=== PATIENT | male | born 1990 | race Caucasian/White ===

== ENCOUNTER 2022-08-04 13:51 | Inpatient (IN) | payer OTHER ==
[2022-08-04 19:06] VITALS: BMI 29.7
[2022-08-04] MEDS ORDERED: MAGNESIUM CITRATE 300 ML BOTTLE PO PRN (23:14)
[2022-08-04] MEDS ORDERED: IBUPROFEN 400 MG TABLET (FP) PO PRN (23:14)
[2022-08-04] MEDS ORDERED: LOPERAMIDE HCL 2 MG CAPSULE PO PRN (23:14)
[2022-08-04] MEDS ORDERED: guaiFENesin 200 MG/10 ML 10 ML UNIT-DOSE CUPS PO PRN (23:14)
[2022-08-04] MEDS ORDERED: MAGNESIUM HYDROX 2400MG/30ML ORAL SUSPENSION 30 ML CUP PO PRN (23:14)
[2022-08-04] MEDS ORDERED: P-EPHED 60MG/TRIPROLIDI 2.5MG TABLET PO PRN (23:14)
[2022-08-04] MEDS ORDERED: MAG HYDROX/AL HYDROX/SIMETH 30 ML UNIT-DOSE CUP PO PRN (23:14)
[2022-08-04] MEDS ORDERED: ACETAMINOPHEN 325 MG TABLET (FP) PO PRN (23:31)
[2022-08-05] MEDS: IBUPROFEN 400 MG TABLET (FP) PO PRN ×2 (01:08→21:20)
[2022-08-05] MEDS: hydrOXYzine PAMOATE 25 MG CAPSULE (FP) PO PRN ×3 (01:08→21:16)
[2022-08-05] MEDS ORDERED: TUBERCULIN PPD 5 TU/0.1ML VIAL ID ONE (08:59)
[2022-08-05] MEDS: PRENATAL VITAMINS W/ FOLIC ACID TABLET (FP) PO SCH (10:14)
[2022-08-05] MEDS: ACETAMINOPHEN 325 MG TABLET (FP) PO PRN (10:15)
[2022-08-05 10:53] LABS: EPI CELLS >36 /uL (0-25.1); HYALINE CASTS 17 /uL (0-3.1); URINE APPEARANCE TURBID; URINE BILIRUBIN 2+ (NEGATIVE); URINE COLOR DK YELLOW; URINE GLUCOSE (UA) NEGATIVE (NEGATIVE); URINE KETONE 1+ (NEGATIVE); URINE LEUK ESTERASE NEGATIVE (NEGATIVE); URINE NITRITE POSITIVE (NEGATIVE); URINE PROTEIN 3+ (NEGATIVE); URINE RBC 17 /uL (0-23.9); URINE WBC 15 /uL (0-25.8)
[2022-08-05 11:37] LABS: URINE BACTERIA MODERATE /uL (0-1359)
[2022-08-05 15:07] LABS: HEMATOCRIT 35.3 % (35.4-49); HEMOGLOBIN 11.8 GM/dL (11.7-16.9); MCH 30.9 pg (25.7-33.7); MCHC 33.3 g/dl (32.0-35.9); MEAN CELL VOLUME 92.9 fl (80-96); MEAN PLT VOLUME 10.2 fl (7.5-11.1); PLATELET COUNT 131 10^3/uL (134-434); RDW 14.5 % (11.9-15.9); WHITE BLOOD COUNT 8.7 K/mm3 (4.0-10.0)
[2022-08-05 15:20] LABS: ALBUMIN 2.3 g/dl (3.4-5.0); BLOOD UREA NITROGEN 13.6 mg/dL (7-18); CALCIUM 9.2 mg/dL (8.5-10.1)
[2022-08-05 15:22] LABS: CREATININE 0.7 mg/dL (0.55-1.3)
[2022-08-05 15:24] LABS: BILIRUBIN,TOTAL 1.1 mg/dL (0.2-1); TOT PROT 6.8 g/dl (6.4-8.2)
[2022-08-05 15:33] LABS: SYPHILIS W/ RPR CONF NON-REACTIVE (NONREACTIVE)
[2022-08-05] MEDS: QUEtiapine FUMARATE 100 MG TABLET (FP) PO SCH (21:16)
[2022-08-05] MEDS: THIAMINE HCL 100 MG TABLET (FP) PO SCH (21:22)
[2022-08-06] MEDS: hydrOXYzine PAMOATE 25 MG CAPSULE (FP) PO PRN (10:54)
[2022-08-06] MEDS: IBUPROFEN 400 MG TABLET (FP) PO PRN (10:54)
[2022-08-06] MEDS: PRENATAL VITAMINS W/ FOLIC ACID TABLET (FP) PO SCH (10:54)
[2022-08-06] MEDS: QUEtiapine FUMARATE 100 MG TABLET (FP) PO SCH (21:20)
[2022-08-06] MEDS: MELATONIN 5 MG TABLETS PO PRN (21:21)
[2022-08-06] MEDS: THIAMINE HCL 100 MG TABLET (FP) PO SCH (21:21)
[2022-08-07] MEDS: PRENATAL VITAMINS W/ FOLIC ACID TABLET (FP) PO SCH (09:55)
[2022-08-07] MEDS: hydrOXYzine PAMOATE 25 MG CAPSULE (FP) PO PRN ×2 (09:56→21:26)
[2022-08-07] MEDS: IBUPROFEN 600 MG TABLET (FP) PO PRN ×2 (09:56→21:25)
[2022-08-07] MEDS: DOXYCYCLINE HYCLATE 100 MG TABLET PO SCH (17:31)
[2022-08-07] MEDS: THIAMINE HCL 100 MG TABLET (FP) PO SCH (21:25)
[2022-08-07] MEDS: QUEtiapine FUMARATE 100 MG TABLET (FP) PO SCH (21:25)
[2022-08-07] MEDS: MELATONIN 5 MG TABLETS PO PRN (21:26)
[2022-08-07] MEDS: POTASSIUM CHLORIDE ORAL LIQUID 20 MEQ/15 ML PO SCH (22:49)
[2022-08-08] MEDS: PRENATAL VITAMINS W/ FOLIC ACID TABLET (FP) PO SCH (09:59)
[2022-08-08] MEDS: POTASSIUM CHLORIDE ORAL LIQUID 20 MEQ/15 ML PO SCH (10:02)
[2022-08-08] MEDS: DOXYCYCLINE HYCLATE 100 MG TABLET PO SCH ×2 (10:03→18:09)
[2022-08-08] MEDS: IBUPROFEN 600 MG TABLET (FP) PO PRN ×2 (10:05→21:17)
[2022-08-08] MEDS: MELATONIN 5 MG TABLETS PO PRN (21:18)
[2022-08-08] MEDS: QUEtiapine FUMARATE 100 MG TABLET (FP) PO SCH (21:18)
[2022-08-08] MEDS: THIAMINE HCL 100 MG TABLET (FP) PO SCH (21:18)
[2022-08-09] MEDS: DOXYCYCLINE HYCLATE 100 MG TABLET PO SCH ×2 (09:37→17:27)
[2022-08-09] MEDS: PRENATAL VITAMINS W/ FOLIC ACID TABLET (FP) PO SCH (09:37)
[2022-08-09] MEDS: IBUPROFEN 600 MG TABLET (FP) PO PRN (09:39)
[2022-08-09] MEDS: THIAMINE HCL 100 MG TABLET (FP) PO SCH (22:20)
[2022-08-09] MEDS: QUEtiapine FUMARATE 100 MG TABLET (FP) PO SCH (22:20)
[2022-08-09] MEDS: MELATONIN 5 MG TABLETS PO PRN (22:21)
[2022-08-09] MEDS: hydrOXYzine PAMOATE 25 MG CAPSULE (FP) PO PRN (22:21)
[2022-08-10] MEDS: PRENATAL VITAMINS W/ FOLIC ACID TABLET (FP) PO SCH (10:05)
[2022-08-10] MEDS: DOXYCYCLINE HYCLATE 100 MG TABLET PO SCH ×2 (10:06→19:08)
[2022-08-10] MEDS: IBUPROFEN 600 MG TABLET (FP) PO PRN (10:07)
[2022-08-10] MEDS: THIAMINE HCL 100 MG TABLET (FP) PO SCH (22:00)
[2022-08-10] MEDS: QUEtiapine FUMARATE 100 MG TABLET (FP) PO SCH (22:00)
[2022-08-11] MEDS: IBUPROFEN 600 MG TABLET (FP) PO PRN ×2 (09:54→17:06)
[2022-08-11] MEDS: PRENATAL VITAMINS W/ FOLIC ACID TABLET (FP) PO SCH (09:54)
[2022-08-11] MEDS: DOXYCYCLINE HYCLATE 100 MG TABLET PO SCH ×2 (09:55→17:05)
[2022-08-11] MEDS: THIAMINE HCL 100 MG TABLET (FP) PO SCH (22:18)
[2022-08-11] MEDS: QUEtiapine FUMARATE 100 MG TABLET (FP) PO SCH (22:18)
[2022-08-12] MEDS: DOXYCYCLINE HYCLATE 100 MG TABLET PO SCH ×2 (10:27→17:47)
[2022-08-12] MEDS: PRENATAL VITAMINS W/ FOLIC ACID TABLET (FP) PO SCH (10:27)
[2022-08-12] MEDS: IBUPROFEN 600 MG TABLET (FP) PO PRN (10:28)
[2022-08-12] MEDS: THIAMINE HCL 100 MG TABLET (FP) PO SCH (21:25)
[2022-08-12] MEDS: ACETAMINOPHEN 325 MG TABLET (FP) PO PRN (21:25)
[2022-08-12] MEDS: QUEtiapine FUMARATE 100 MG TABLET (FP) PO SCH (21:25)
[2022-08-13] MEDS: IBUPROFEN 600 MG TABLET (FP) PO PRN ×2 (06:17→21:17)
[2022-08-13] MEDS: PRENATAL VITAMINS W/ FOLIC ACID TABLET (FP) PO SCH (10:00)
[2022-08-13] MEDS: DOXYCYCLINE HYCLATE 100 MG TABLET PO SCH ×2 (10:00→18:09)
[2022-08-13] MEDS: MELATONIN 5 MG TABLETS PO PRN (21:16)
[2022-08-13] MEDS: THIAMINE HCL 100 MG TABLET (FP) PO SCH (21:16)
[2022-08-13] MEDS: hydrOXYzine PAMOATE 25 MG CAPSULE (FP) PO PRN (21:16)
[2022-08-13] MEDS: QUEtiapine FUMARATE 100 MG TABLET (FP) PO SCH (21:16)
[2022-08-14] MEDS: IBUPROFEN 600 MG TABLET (FP) PO PRN ×2 (07:08→21:22)
[2022-08-14] MEDS: DOXYCYCLINE HYCLATE 100 MG TABLET PO SCH (10:13)
[2022-08-14] MEDS: PRENATAL VITAMINS W/ FOLIC ACID TABLET (FP) PO SCH (10:13)
[2022-08-14] MEDS: THIAMINE HCL 100 MG TABLET (FP) PO SCH (21:22)
[2022-08-14] MEDS: QUEtiapine FUMARATE 100 MG TABLET (FP) PO SCH (21:22)
[2022-08-15] MEDS: IBUPROFEN 600 MG TABLET (FP) PO PRN ×2 (06:55→21:30)
[2022-08-15] MEDS: PRENATAL VITAMINS W/ FOLIC ACID TABLET (FP) PO SCH (10:01)
[2022-08-15] MEDS: ACETAMINOPHEN 325 MG TABLET (FP) PO PRN (10:02)
[2022-08-15] MEDS: LIDOCAINE 5% TOPICAL PATCH TP SCH (17:21)
[2022-08-15] MEDS: MELATONIN 5 MG TABLETS PO PRN (21:29)
[2022-08-15] MEDS: QUEtiapine FUMARATE 100 MG TABLET (FP) PO SCH (21:29)
[2022-08-15] MEDS: THIAMINE HCL 100 MG TABLET (FP) PO SCH (21:29)
[2022-08-15] MEDS: LIDOCAINE PATCH REMOVAL MC SCH (22:28)
[2022-08-16] MEDS: IBUPROFEN 600 MG TABLET (FP) PO PRN ×2 (06:46→21:18)
[2022-08-16] MEDS: PRENATAL VITAMINS W/ FOLIC ACID TABLET (FP) PO SCH (09:43)
[2022-08-16] MEDS: LIDOCAINE 5% TOPICAL PATCH TP SCH (09:43)
[2022-08-16] MEDS: ACETAMINOPHEN 325 MG TABLET (FP) PO PRN (09:44)
[2022-08-16] MEDS: MELATONIN 5 MG TABLETS PO PRN (21:17)
[2022-08-16] MEDS: THIAMINE HCL 100 MG TABLET (FP) PO SCH (21:17)
[2022-08-16] MEDS: QUEtiapine FUMARATE 100 MG TABLET (FP) PO SCH (21:18)
[2022-08-16] MEDS: LIDOCAINE PATCH REMOVAL MC SCH (21:18)
[2022-08-17 07:39] VITALS: BP 101/60; PULSE 77; RESP 17; TEMP 97.1
[2022-08-17] MEDS: IBUPROFEN 600 MG TABLET (FP) PO PRN (08:43)
[2022-08-17] MEDS ORDERED: LIDOCAINE PATCH REMOVAL MC SCH (09:23)
[2022-08-17] MEDS: PRENATAL VITAMINS W/ FOLIC ACID TABLET (FP) PO SCH (10:08)
[2022-08-17] MEDS: LIDOCAINE 5% TOPICAL PATCH TP SCH (10:09)
[2022-08-17] MEDS: QUEtiapine FUMARATE 100 MG TABLET (FP) PO SCH (21:29)
[2022-08-17] MEDS: THIAMINE HCL 100 MG TABLET (FP) PO SCH (21:29)
[2022-08-17] MEDS: MELATONIN 5 MG TABLETS PO PRN (21:29)
[2022-08-17] MEDS: hydrOXYzine PAMOATE 25 MG CAPSULE (FP) PO PRN (21:30)
[2022-08-18] MEDS: IBUPROFEN 600 MG TABLET (FP) PO PRN (07:11)
[2022-08-18] MEDS: PRENATAL VITAMINS W/ FOLIC ACID TABLET (FP) PO SCH (09:19)
[2022-08-18] MEDS: LIDOCAINE 5% TOPICAL PATCH TP SCH (09:20)
== END 2022-08-18 09:28 | disposition home or self-care (01) | DRG 772 ==
LOC: YASAS 13:51 → Y5N 23:03
PROVIDERS: ADMIT Allergy & Immunology; ATTEND Psychiatry & Neurology Pain Medicine
PROC: HZ42ZZZ Group Counseling for Substance Abuse Treatment, Cognitive-Behavioral (ICD-10-PCS; principal; 2022-08-01)
DX: F10.20 Alcohol dependence, uncomplicated (principal); F41.9 Anxiety disorder, unspecified; F32.A Depression, unspecified; G47.00 Insomnia, unspecified; E87.6 Hypokalemia; N39.0 Urinary tract infection, site not specified; S93.402D Sprain of unspecified ligament of left ankle, subsequent encounter; V18.0XXD Pedal cycle driver injured in noncollision transport accident in nontraffic accident, subsequent encounter; Z99.89 Dependence on other enabling machines and devices
CPT/HCPCS: 36415; 73110-TC-RT-FY; 80053; 81003; 84132; 85027; 86780; 86803; 87086; C9803-CS; U0003; U0005

== ENCOUNTER 2023-08-01 11:22 | Inpatient (IN) | payer OTHER ==
[2023-08-01 12:09] VITALS: BMI 25.4
[2023-08-01] MEDS ORDERED: BENZONATATE 200 MG CAPSULE PO PRN (12:54)
[2023-08-01] MEDS ORDERED: ONDANSETRON *ODT* 4 MG TABLET SL PRN (12:54)
[2023-08-01] MEDS ORDERED: guaiFENesin 600 MG TABLET.ER (FP) PO PRN (12:54)
[2023-08-01] MEDS ORDERED: LOPERAMIDE HCL 2 MG CAPSULE PO PRN (12:54)
[2023-08-01] MEDS ORDERED: NALOXONE HCL 0.4 MG/ML VIAL IM PRN (12:54)
[2023-08-01] MEDS ORDERED: MAGNESIUM HYDROX 2400MG/30ML ORAL SUSPENSION 30 ML CUP PO PRN (12:54)
[2023-08-01] MEDS ORDERED: IBUPROFEN 400 MG TABLET (FP) PO PRN (12:54)
[2023-08-01] MEDS ORDERED: DICYCLOMINE HCL 10 MG CAPSULE PO PRN (12:54)
[2023-08-01] MEDS ORDERED: hydrOXYzine PAMOATE 25 MG CAPSULE (FP) PO PRN (12:54)
[2023-08-01] MEDS ORDERED: BISMUTH SUBSALICYLATE 524 MG/30 ML PO PRN (12:54)
[2023-08-01] MEDS ORDERED: BENZOCAINE/MENTHOL (CHLORASEPTIC ) LOZENGE MM PRN (12:54)
[2023-08-01] MEDS ORDERED: ACETAMINOPHEN 325 MG TABLET (FP) PO PRN (12:54)
[2023-08-01] MEDS ORDERED: MAG HYDROX/AL HYDROX/SIMETH 30 ML UNIT-DOSE CUP PO PRN (12:54)
[2023-08-01] MEDS ORDERED: IBUPROFEN 600 MG TABLET (FP) PO PRN (12:54)
[2023-08-01] MEDS ORDERED: POLYETHYLENE GLYCOL (HEALTHYLAX) 3350 17 GM PACKET PO PRN (12:54)
[2023-08-01] MEDS ORDERED: NALOXONE HCL (KLOXXADO) 8 MG SPRAY NS PRN (12:54)
[2023-08-01] MEDS: ERYTHROMYCIN 0.5% OPHTHALMIC OINTMENT 3.5 GM TUBE OD SCH (15:22)
[2023-08-01] MEDS ORDERED: chlordiazePOXIDE HCL 25 MG CAPSULE PO PRN (18:05)
[2023-08-01] MEDS: METHOCARBAMOL 500 MG TABLET PO PRN (19:34)
[2023-08-01] MEDS: chlordiazePOXIDE HCL 25 MG CAPSULE PO SCH (22:19)
[2023-08-01] MEDS: THIAMINE HCL 100 MG TABLET (FP) PO SCH (22:19)
[2023-08-01] MEDS: MELATONIN 5 MG TABLETS PO SCH (22:19)
[2023-08-01] MEDS: QUEtiapine FUMARATE 100 MG TABLET (FP) PO SCH (22:19)
[2023-08-02] MEDS: chlordiazePOXIDE HCL 25 MG CAPSULE PO SCH ×2 (05:12→10:39)
[2023-08-02 10:20] LABS: HEMATOCRIT 35.3 % (35.4-49); HEMOGLOBIN 12.5 GM/dL (11.7-16.9); MCHC 35.4 g/dl (32.0-35.9); MEAN PLT VOLUME 7.6 fl (7.5-11.1); PLATELET COUNT 93 10^3/uL (134-434); RBC 3.68 M/mm3 (4.00-5.60); RDW 18.6 % (11.9-15.9); WHITE BLOOD COUNT 2.3 K/mm3 (4.0-10.0)
[2023-08-02] MEDS: PRENATAL VITAMINS W/ FOLIC ACID TABLET (FP) PO SCH (10:38)
[2023-08-02] MEDS: ERYTHROMYCIN 0.5% OPHTHALMIC OINTMENT 3.5 GM TUBE OD SCH (10:39)
[2023-08-02] MEDS: NICOTINE 21 MG/24 HOURS TOPICAL PATCH TD SCH (10:41)
[2023-08-02 10:48] LABS: CHLORIDE 103 mmol/L (98-107); SODIUM 139 mmol/L (136-145)
[2023-08-02 11:09] LABS: CALCIUM 8.8 mg/dL (8.5-10.1)
[2023-08-02 11:10] LABS: BLOOD UREA NITROGEN 12.3 mg/dL (7-18); CO2 29 mmol/L (21-32); GLUCOSE,RANDOM 94 mg/dL (74-106)
[2023-08-02 11:12] LABS: CREATININE 0.6 mg/dL (0.55-1.3); SGOT/AST 232 U/L (15-37); SGPT/ALT 88 U/L (13-61)
[2023-08-02 11:14] LABS: TOT PROT 6.7 g/dl (6.4-8.2)
[2023-08-02 11:16] LABS: ALK PHOS 131 U/L (45-117); BILIRUBIN,TOTAL 1.8 mg/dL (0.2-1)
[2023-08-02 11:21] LABS: ANION GAP 7 MMOL/L (8-16); POTASSIUM 2.9 mmol/L (3.5-5.1)
[2023-08-02] MEDS ORDERED: POTASSIUM CHLORIDE ORAL LIQUID 20 MEQ/15 ML PO ONE ×2 (11:47→13:00)
[2023-08-02] MEDS ORDERED: LORazepam 1 MG TABLET PO PRN (11:55)
[2023-08-02] MEDS: LORazepam 2 MG TABLET PO SCH ×2 (17:31→22:07)
[2023-08-02] MEDS: NICOTINE POLACRILEX 2 MG GUM BUC PRN (17:32)
[2023-08-02] MEDS: QUEtiapine FUMARATE 100 MG TABLET (FP) PO SCH (22:07)
[2023-08-02] MEDS: THIAMINE HCL 100 MG TABLET (FP) PO SCH (22:07)
[2023-08-02] MEDS: MELATONIN 5 MG TABLETS PO SCH (22:07)
[2023-08-02] MEDS: POTASSIUM CHLORIDE ORAL LIQUID 20 MEQ/15 ML PO SCH (22:08)
[2023-08-03] MEDS ORDERED: chlordiazePOXIDE HCL 25 MG CAPSULE PO SCH (05:00)
[2023-08-03] MEDS: LORazepam 2 MG TABLET PO SCH ×4 (05:17→22:17)
[2023-08-03] MEDS: PRENATAL VITAMINS W/ FOLIC ACID TABLET (FP) PO SCH (10:21)
[2023-08-03] MEDS: POTASSIUM CHLORIDE ORAL LIQUID 20 MEQ/15 ML PO SCH ×2 (10:22→22:16)
[2023-08-03] MEDS: NICOTINE POLACRILEX 2 MG GUM BUC PRN ×2 (10:22→19:43)
[2023-08-03] MEDS: ERYTHROMYCIN 0.5% OPHTHALMIC OINTMENT 3.5 GM TUBE OD SCH (10:24)
[2023-08-03] MEDS: NICOTINE 21 MG/24 HOURS TOPICAL PATCH TD SCH (10:25)
[2023-08-03 12:10] LABS: HEMATOCRIT 36.4 % (35.4-49); HEMOGLOBIN 12.2 GM/dL (11.7-16.9); MCH 33.2 pg (25.7-33.7); MCHC 33.6 g/dl (32.0-35.9); MEAN CELL VOLUME 98.9 fl (80-96); MEAN PLT VOLUME 7.8 fl (7.5-11.1); PLATELET COUNT 87 10^3/uL (134-434); RBC 3.68 M/mm3 (4.00-5.60); RDW 18.6 % (11.9-15.9); WHITE BLOOD COUNT 2.5 K/mm3 (4.0-10.0)
[2023-08-03 13:21] LABS: POTASSIUM 3.6 mmol/L (3.5-5.1)
[2023-08-03 14:03] LABS: BLOOD UREA NITROGEN 11.1 mg/dL (7-18); CALCIUM 8.9 mg/dL (8.5-10.1)
[2023-08-03 14:06] LABS: CREATININE 0.7 mg/dL (0.55-1.3)
[2023-08-03 14:07] LABS: TOT PROT 6.5 g/dl (6.4-8.2)
[2023-08-03 14:09] LABS: BILIRUBIN,TOTAL 1.2 mg/dL (0.2-1)
[2023-08-03] MEDS: METHOCARBAMOL 500 MG TABLET PO PRN (20:58)
[2023-08-03] MEDS: MELATONIN 5 MG TABLETS PO SCH (22:15)
[2023-08-03] MEDS: THIAMINE HCL 100 MG TABLET (FP) PO SCH (22:16)
[2023-08-03] MEDS: QUEtiapine FUMARATE 100 MG TABLET (FP) PO SCH (22:16)
[2023-08-04] MEDS ORDERED: chlordiazePOXIDE HCL 10 MG CAPSULE PO PRN
[2023-08-04] MEDS ORDERED: chlordiazePOXIDE HCL 10 MG CAPSULE PO SCH (05:00)
[2023-08-04] MEDS: LORazepam 1 MG TABLET PO SCH ×2 (05:18→10:45)
[2023-08-04 06:13] VITALS: BP 137/89; PULSE 82; RESP 16; TEMP 97.8
[2023-08-04] MEDS: PRENATAL VITAMINS W/ FOLIC ACID TABLET (FP) PO SCH (09:42)
[2023-08-04] MEDS: POTASSIUM CHLORIDE ORAL LIQUID 20 MEQ/15 ML PO SCH (09:42)
[2023-08-04] MEDS: NICOTINE 21 MG/24 HOURS TOPICAL PATCH TD SCH (09:45)
[2023-08-04] MEDS: ERYTHROMYCIN 0.5% OPHTHALMIC OINTMENT 3.5 GM TUBE OD SCH (09:45)
[2023-08-05] MEDS ORDERED: LORazepam 0.5 MG TABLET PO PRN
[2023-08-05] MEDS ORDERED: LORazepam 0.5 MG TABLET PO SCH (05:00)
[2023-08-05] MEDS ORDERED: chlordiazePOXIDE HCL 10 MG CAPSULE PO SCH (05:00)
[2023-08-06] MEDS ORDERED: LORazepam 0.5 MG TABLET PO ONE (05:00)
[2023-08-06] MEDS ORDERED: chlordiazePOXIDE HCL 10 MG CAPSULE PO ONE (05:00)
== END 2023-08-04 09:46 | disposition left against medical advice (07) | DRG 770 ==
LOC: YASAS 11:22 → Y3N 12:52
PROVIDERS: ADMIT Allergy & Immunology; ATTEND Surgery
PROC: HZ2ZZZZ Detoxification Services for Substance Abuse Treatment (ICD-10-PCS; principal; 2023-08-01)
DX: F10.230 Alcohol dependence with withdrawal, uncomplicated (principal); F17.210 Nicotine dependence, cigarettes, uncomplicated; F10.280 Alcohol dependence with alcohol-induced anxiety disorder; F10.282 Alcohol dependence with alcohol-induced sleep disorder; E87.6 Hypokalemia; D72.819 Decreased white blood cell count, unspecified; R74.8 Abnormal levels of other serum enzymes; Z59.00 Homelessness unspecified; Z56.0 Unemployment, unspecified
CPT/HCPCS: 36415; 80053; 85027; 86780; 87635

== ENCOUNTER 2025-06-19 13:47 | Inpatient (IN) | payer OTHER ==
[2025-06-19 14:36] VITALS: BMI 29.0
[2025-06-19] MEDS ORDERED: MAGNESIUM HYDROX 2400MG/30ML ORAL SUSPENSION 30 ML CUP PO PRN (15:31)
[2025-06-19] MEDS ORDERED: BENZONATATE 200 MG CAPSULE PO PRN (15:31)
[2025-06-19] MEDS ORDERED: NICOTINE POLACRILEX 2 MG LOZENGE BC PRN (15:31)
[2025-06-19] MEDS ORDERED: ONDANSETRON *ODT* 4 MG TABLET SL PRN (15:31)
[2025-06-19] MEDS ORDERED: ACETAMINOPHEN 325 MG TABLET (FP) PO PRN (15:31)
[2025-06-19] MEDS ORDERED: NALOXONE (NARCAN) HCL 4 MG/0.1 ML SPRAY NS PRN (15:31)
[2025-06-19] MEDS ORDERED: BENZOCAINE/MENTHOL (CHLORASEPTIC ) LOZENGE MM PRN (15:31)
[2025-06-19] MEDS ORDERED: NICOTINE POLACRILEX 2 MG GUM BUC PRN (15:31)
[2025-06-19] MEDS ORDERED: BISMUTH SUBSALICYLATE 524 MG/30 ML PO PRN (15:31)
[2025-06-19] MEDS ORDERED: guaiFENesin 600 MG TABLET.ER (FP) PO PRN (15:31)
[2025-06-19] MEDS ORDERED: POLYETHYLENE GLYCOL (HEALTHYLAX) 3350 17 GM PACKET PO PRN (15:31)
[2025-06-19] MEDS ORDERED: LOPERAMIDE HCL 2 MG CAPSULE PO PRN (15:31)
[2025-06-19] MEDS ORDERED: IBUPROFEN 400 MG TABLET (FP) PO PRN (15:31)
[2025-06-19] MEDS: hydrOXYzine PAMOATE 25 MG CAPSULE (FP) PO PRN (17:16)
[2025-06-19] MEDS: MELATONIN 5 MG TABLETS PO SCH (22:18)
[2025-06-19] MEDS: METHOCARBAMOL 500 MG TABLET PO PRN (22:18)
[2025-06-19] MEDS: THIAMINE 100 MG TABLET PO SCH (22:18)
[2025-06-19] MEDS: DICYCLOMINE HCL 10 MG CAPSULE PO PRN (22:19)
[2025-06-20 10:28] LABS: MCHC 32.1 g/dl (32.3-36.5); MEAN CELL VOLUME 98.2 fl (79.0-92.2); MEAN PLT VOLUME 9.8 fl (9.4-12.4); RDW 14.5 % (12.0-15.6)
[2025-06-20] MEDS: PRENATAL VITAMINS W/ FOLIC ACID TABLET (FP) PO SCH (10:55)
[2025-06-20] MEDS: FOLIC ACID 1 MG TABLET (FP) PO SCH (10:55)
[2025-06-20] MEDS: MAG HYDROX/AL HYDROX/SIMETH 30 ML UNIT-DOSE CUP PO PRN (10:55)
[2025-06-20] MEDS: IBUPROFEN 600 MG TABLET (FP) PO PRN (12:00)
[2025-06-20 12:08] LABS: CO2 27 mmol/L (21-32); GLUCOSE,RANDOM 99 mg/dL (74-106); TOT PROT 6.8 g/dl (6.4-8.2)
[2025-06-20 12:09] LABS: ALK PHOS 110 U/L (40-150); CREATININE 0.64 mg/dL (0.55-1.3); SGOT/AST 40 U/L (5-34); SGPT/ALT 15 U/L (0-55)
[2025-06-21] MEDS: BACITRACIN 0.9 GM PACKET TP SCH (10:33)
[2025-06-22] MEDS: ACAMPROSATE CALCIUM 333 MG TABLET.DR PO SCH (13:41)
[2025-06-24 09:29] VITALS: BP 141/89; PULSE 64; RESP 14; TEMP 97.5
== END 2025-06-24 09:58 | disposition home or self-care (01) | DRG 775 ==
LOC: YASAS 13:47 → Y3N 16:54
PROVIDERS: ADMIT Neuromusculoskeletal Medicine & OMM; ATTEND Allergy & Immunology
PROC: HZ2ZZZZ Detoxification Services for Substance Abuse Treatment (ICD-10-PCS; principal; 2025-06-19)
DX: F10.230 Alcohol dependence with withdrawal, uncomplicated (principal); F17.210 Nicotine dependence, cigarettes, uncomplicated; F10.282 Alcohol dependence with alcohol-induced sleep disorder; F32.A Depression, unspecified; F41.9 Anxiety disorder, unspecified
CPT/HCPCS: 36415; 80053; 80307; 85027; 86780; 93005; 93010